=== PATIENT | female | born 1960 | race Caucasian/White ===

== ENCOUNTER 2017-09-09 12:35 | Emergency (ER) | payer MEDICARE, SELFPAY ==
[2017-09-09 15:30] VITALS: BP 190/118; PULSE 96; RESP 24; TEMP 37.2; O2SAT 95
[2017-09-09 15:43] VITALS: BP 176/117; PULSE 118; RESP 20; TEMP 36.8; O2SAT 95
[2017-09-09 15:46] VITALS: BMI 40.2
[2017-09-09 16:04] VITALS: PULSE 116; RESP 20; O2SAT 93; BMI 35.5
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
[2017-09-09 17:47] LABS: Basophils # 0.1 K/mm3 (0-0.2); Basophils % 0.6 % (0.1-2.0); Eosinophils # 0.1 K/mm3 (0.0-0.4); Eosinophils % 0.7 % (0.1-12.0); Hematocrit 48.2 % (37.0-47.0); Hemoglobin 15.9 g/dL (12.2-16.2); Lymphocytes # 3.2 K/mm3 (0.7-4.5); Lymphocytes % 20.8 K/mm3 (10-50); Mean Corpuscular HGB Conc 32.9 g/dL (31.8-35.4); Mean Corpuscular Hemoglobin 28.6 pg (27.0-31.2); Mean Corpuscular Volume 86.9 fl (81-99); Monocytes # 0.7 K/mm3 (0.1-1.0); Monocytes % 4.3 % (1.7-9.3); Neutrophils # 11.4 K/mm3 (1.8-7.8); Neutrophils % 73.6 % (37.0-80.0); Platelet Count 287 K/mm3 (142-424); Red Blood Count 5.54 M/mm3 (4.20-5.40); White Blood Count 15.4 K/mm3 (4.8-10.8)
[2017-09-09 17:50] LABS: MANUAL DIFFERENTIAL MANUAL DIFFERENTIAL (MANUAL DIFF)
[2017-09-09 18:02] LABS: Alanine Aminotransferase 69 U/L (12-78); Albumin Level 3.9 gm/dL (3.4-5.0); Albumin/Globulin Ratio 0.9 (1.1-1.8); Alkaline Phosphatase 116 U/L (46-116); Anion Gap 17.7 mEq/L (5-15); Aspartate Amino Transferase 49 U/L (15-37); Bilirubin,Total 0.4 mg/dL (0.2-1.0); Blood Urea Nitrogen 12 mg/dL (7-18); Calcium 9.8 mg/dL (8.5-10.1); Carbon Dioxide 21 mmol/L (21.0-32.0); Chloride 104 mmol/L (98-107); Creatinine Clearance Estimated 87 mg/ml (0-300); Creatinine,Serum 1.12 mg/dL (0.55-1.02); Estimated Glomerular Filt Rate 50 ml/min (>60); GFR (African American) > 60 ML/MIN (>60); Globulin 4.2 gm/dl (1.3-3.2); Glucose 202 mg/dL (74-106); Potassium 3.7 mmoL/L (3.5-5.1); Sodium 139 mmol/L (136-145); Total Protein,Serum 8.1 gm/dL (6.4-8.2)
[2017-09-09 18:24] LABS: Lymphocytes % 25 % (10-50); Monocytes % 1 % (2-9); Neutrophils % 74 % (42-76); Platelet Estimate Normal; RBC Morphology Normal; Total Cells Counted 100
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
[2017-09-09 20:36] VITALS: BP 170/85; PULSE 105; RESP 16; TEMP 36.6; O2SAT 92
== END 2017-09-09 20:46 | disposition home or self-care (01) ==
PROVIDERS: Emergency Provider Family Medicine
DX: S00.93XA Contusion of unspecified part of head, initial encounter (principal); S10.93XA Contusion of unspecified part of neck, initial encounter; S30.1XXA Contusion of abdominal wall, initial encounter; S40.012A Contusion of left shoulder, initial encounter; Y92.019 Unspecified place in single-family (private) house as the place of occurrence of the external cause; Y04.0XXA Assault by unarmed brawl or fight, initial encounter
CPT/HCPCS: 74178; 70450; 72050; 74176; 74177; 80053; 85007; 85025; 96374; 99284; J2405; Q9967

== ENCOUNTER → 2018-06-10 10:40 | Outpatient (CLI) | payer MEDICARE, SELFPAY ==
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
[2018-06-10 11:15] LABS: Basophils # 0.1 K/mm3 (0-0.2); Basophils % 0.8 % (0.1-2.0); Eosinophils # 0.1 K/mm3 (0.0-0.4); Eosinophils % 1.2 % (0.1-12.0); Hematocrit 47.6 % (37.0-47.0); Hemoglobin 15.4 g/dL (12.2-16.2); Lymphocytes # 4.1 K/mm3 (0.7-4.5); Lymphocytes % 37.8 K/mm3 (10-50); Mean Corpuscular HGB Conc 32.2 g/dL (31.8-35.4); Mean Corpuscular Hemoglobin 28.9 pg (27.0-31.2); Mean Corpuscular Volume 89.7 fl (81-99); Mean Platelet Volume 8.3 fl (7.4-10.4); Monocytes # 0.6 K/mm3 (0.1-1.0); Monocytes % 5.8 % (1.7-9.3); Neutrophils # 5.9 K/mm3 (1.8-7.8); Neutrophils % 54.4 % (37.0-80.0); Platelet Count 264 K/mm3 (142-424); Red Blood Count 5.31 M/mm3 (4.20-5.40); Red Cell Distribution Width 14.5 % (11.5-17.5); White Blood Count 10.8 K/mm3 (4.8-10.8)
[2018-06-10 12:16] LABS: Alanine Aminotransferase 60 U/L (12-78); Albumin Level 3.8 gm/dL (3.4-5.0); Alkaline Phosphatase 103 U/L (46-116); Anion Gap 14.5 mEq/L (5-15); Aspartate Amino Transferase 35 U/L (15-37); Bilirubin,Direct 0.1 mg/dL (0.0-0.2); Bilirubin,Indirect 0.4 mg/dL (0.0-0.9); Bilirubin,Total 0.5 mg/dL (0.2-1.0); Blood Urea Nitrogen 9 mg/dL (7-18); Calcium 9.1 mg/dL (8.5-10.1); Carbon Dioxide 26 mmol/L (21.0-32.0); Chloride 105 mmol/L (98-107); Cholesterol 235 mg/dL (140-200); Creatinine,Serum 0.92 mg/dL (0.55-1.02); Estimated Glomerular Filt Rate 63 ml/min (>60); Free T4 (Free Thyroxine) 0.96 ng/dl (0.76-1.46); GFR (African American) 76 ML/MIN (>60); Glucose 126 mg/dL (74-106); HDL Cholesterol 39 mg/dL (29-89); LDL Cholesterol 136 mg/dL (0-130); Potassium 4.5 mmoL/L (3.5-5.1); Sodium 141 mmol/L (136-145); Total Protein,Serum 7.5 gm/dL (6.4-8.2); Triglycerides 301 mg/dL (30-200); VLDL Cholesterol 60 mg/dL (0-40)
== END ==
PROVIDERS: Family Provider Physician Assistant; PCP Physician Assistant; Visit Provider Internal Medicine
DX: R00.1 Bradycardia, unspecified (principal); R06.00 Dyspnea, unspecified; R07.9 Chest pain, unspecified; R40.0 Somnolence; R53.83 Other fatigue; R94.31 Abnormal electrocardiogram [ECG] [EKG]
CPT/HCPCS: 36415; 71046; 80048; 80061; 80076; 84439; 84443; 85025

== ENCOUNTER → 2018-06-13 07:07 | Outpatient (CLI) | payer MEDICARE, SELFPAY ==
--- NOTE | 2018-06-13 07:11 | CA_ITS ---
PROCEDURE: 2-D M-mode and color Doppler study INDICATIONS FOR THE TEST: Chest pain X COPD Heart Murmur Tobacco SmokingX PalpitationsX Fatigue Syncope EdemaX Hypertension Diabetes Mellitus Rheumatic Fever SOBXDOE ObesityXHyperlipidemia Family History HDX Additional History PATIENT INFORMATION HEIGHT: 60 WEIGHT:248 GENDER: Female B/P:165/96 2-D/M-MODE INTERPRETATION: 2-D MEASUREMENTS OBSERVED VALUES IN CMS Right Ventricular Dimension (RVDd) 3.0 Interventricular Septum (Thickness)(IVsd) .9 Left Ventricular Internal Dimensions(LVIDd) 5.7 Left Ventricular Posterior Wall (Thickness)(LVPWd) 1.0 Aortic Root 3.5 Aortic Cusp Separation 2.1 Left Atrial Dimensions (LAD) 3.9 2D 1. Left atrium is mildly enlarged, left ventricle is normal size, there is mild qualitative concentric left ventricular hypertrophy, visually estimated ejection fraction of 55% with no regional wall motion abnormality. 2. The right atrium and right ventricle are mildly enlarged with normal contractility. 3. The aortic valve is minimally thickened and fibrosed. 4. The mitral and tricuspid valve are structurally normal. 5. The pulmonic valve is poorly visualized. 6. No significant pericardial effusion noted. DOPPLER INTERROGATION: Doppler interrogation of the aortic, mitral and tricuspid valvular presence of mild mitral and tricuspid regurgitation, tricuspid regurgitation jet velocity is inadequate for calculation of the right ventricular systolic pressure, grade 1 diastolic dysfunction seen with tissue Doppler evidence of raised left atrial pressure. CONCLUSION: 1. Mildly enlarged left atrium, normal left ventricular size, visually estimated ejection fraction 55% with no regional wall motion abnormality, grade 1 diastolic dysfunction seen with tissue Doppler evidence of raised left atrial pressure. 2. Mildly enlarged right ventricle with normal contractility. 3. Mild mitral and tricuspid regurgitation 4. No significant pericardial effusion noted.
--- NOTE | 2018-06-13 07:11 | NM_ITS ---
History and Indications: Chest pain, shortness of breath, palpitations, fatigue and family history, abnormal EKG Procedure: Patient received a 0.4 mg of intravenous Lexiscan, resting heart rate was 50 bpm resting blood pressure 180/91, with Lexiscan maximum heart rate achieved was 108 bpm which is less than 85% of the maximum predicted heart rate and a blood pressure was 207/110. With Lexiscan patient complained of nausea and vomiting. Electrocardiogram: Resting electrocardiogram showed sinus bradycardia, with Lexiscan there is less than 1.5 ST segment depression noted from the baseline EKG. The EKG portion of the Lexiscan Myoview is nondiagnostic. Cardiac stress and resting SPECT images: Cardiac stress and resting SPECT images were obtained using technetium 99 Myoview 31.6 mCi at stress and 10.1 mCi at rest. Gated SPECT further analysis of segmental wall motion and calculation of the ejection fraction also done. Cardiac stress and rest show a mild reversible defect in the anterior wall with the perfusion of the apex being normal is likely secondary to soft tissue attenuation from the breast,doubt this is reversible ischemia. Computer derived ejection fraction is 63% with no regional wall motion abnormality, right ventricle is normal size and contractility. Conclusion: 1. The EKG portion of the Lexiscan Myoview is nondiagnostic. 3. Mild reversible defect in the anterior wall is likely secondary to soft tissue attenuation, computer derived ejection fraction is 63% with no regional wall motion abnormality, right ventricle is normal size and contractility. This study is technically limited due to patient's body habitus.
== END ==
PROVIDERS: PCP Physician Assistant; Visit Provider Internal Medicine
DX: R00.1 Bradycardia, unspecified (principal); R06.00 Dyspnea, unspecified; R07.9 Chest pain, unspecified; R40.0 Somnolence; R53.83 Other fatigue; R94.31 Abnormal electrocardiogram [ECG] [EKG]
CPT/HCPCS: 78452; 93017; 93306; A9502; J2785

== ENCOUNTER → 2021-08-17 11:13 | Outpatient (CLI) | payer MEDICARE, SELFPAY ==
[2021-08-17 12:03] LABS: Hemoglobin A1C 7.5 % (4.0-6.0)
[2021-08-17 12:41] LABS: Alanine Aminotransferase 36 U/L (12-78); Albumin Level 4.6 g/dl (3.5-5.0); Albumin/Globulin Ratio 1.5 (1.1-1.8); Alkaline Phosphatase 97 U/L (38-126); Anion Gap 12.6 mEq/L (5-15); Aspartate Amino Transferase 34 U/L (14-36); Bilirubin,Total 0.5 mg/dl (0.2-1.3); Blood Urea Nitrogen 11 mg/dl (7-17); Calcium 10.5 mg/dl (8.4-10.2); Carbon Dioxide 25 mmol/L (22.0-30.0); Chloride 104 mmol/L (98-107); Chol/HDL Ratio 3.3 (1-3.5); Cholesterol 175 mg/dl (140-200); Estimated Glomerular Filt Rate 64 ml/min (>60); GFR (African American) 77 ML/MIN (>60); Glucose 145 mg/dl (74-100); HDL Cholesterol 53 mg/dl (40-60); Potassium 4.6 mmoL/L (3.5-5.1); Sodium 137 mmol/L (136-145); Total Protein,Serum 7.6 g/dl (6.3-8.2); Triglycerides 211 mg/dl (30-150); VLDL Cholesterol 42 mg/dL (0-40)
[2021-08-17 12:52] LABS: Direct LDL Cholesterol 92.26 mg/dL (100-129)
[2021-08-17 12:59] LABS: Free Thyroxine Index 2.9 ug/dL (5.93-13.13); T4 (Thyroxine) 10.2 ug/dl (5.53-11.0); Triiodothryronine (T3) Uptake 28 % (23.5-40.5)
[2021-08-17 13:12] LABS: Thyroid Stimulating Hormone 1.75 uIU/mL (0.465-4.68)
== END ==
PROVIDERS: Visit Provider Internal Medicine Adolescent Medicine
DX: E11.65 Type 2 diabetes mellitus with hyperglycemia (principal); E78.2 Mixed hyperlipidemia
CPT/HCPCS: 36415; 80053; 80061; 83036; 84436; 84443; 84479

== ENCOUNTER → 2021-09-08 15:26 | Outpatient (CLI) | payer MEDICARE, SELFPAY ==
--- NOTE | 2021-09-08 15:29 | MM_ITS ---
PROCEDURE INFORMATION: Exam: MG Bilateral Screening 3D Mammography Exam date and time: 09/08/2021 3:29 PM Age: 60 years old Clinical indication: Encounter for screening mammogram for malignant neoplasm of breast TECHNIQUE: Imaging protocol: Bilateral screening tomosynthesis and 2D mammography including computer-aided detection (CAD) when performed. COMPARISON: No relevant prior studies available. FINDINGS: MAMMOGRAPHY: Breast composition: The breasts are almost entirely fatty. Mass: None. Architectural distortion: None. Calcifications: No suspicious calcifications. Asymmetric density: None. Skin thickening: None. Axillary adenopathy: None. IMPRESSION: No mammographic evidence of malignancy. Annual screening is recommended unless otherwise clinically indicated. ASSESSMENT: BI-RADS Category 1: Negative
== END ==
PROVIDERS: PCP Internal Medicine Adolescent Medicine; Visit Provider Nurse Practitioner Family
DX: Z12.31 Encounter for screening mammogram for malignant neoplasm of breast (principal)
CPT/HCPCS: 77063; 77067

== ENCOUNTER 2021-10-09 16:35 | Emergency (ER) | payer MEDICARE, SELFPAY ==
[2021-10-09 16:37] VITALS: BP 190/105; PULSE 88; RESP 16; TEMP 36.9; O2SAT 96; BMI 31.6
--- NOTE | 2021-10-09 19:45 | HMH.EDGENADL ---
ED Disposition Condition on Discharge: Good - Critical Care Critical Care Time: No <Hayder Moody - Last Filed: 10/09/21 19:45> <Wyatt Lundberg - Last Filed: 10/10/21 01:01> Clinical Impression: Gastroenteritis, Abdominal cramping Disposition: Home, Self-Care Instructions: DI for Enteritis Additional Instructions: call pcp in am and return sample Referrals: Gustabo Kelly MD [Primary Care Provider] - Attestation: On 10/09/21, the high probability of a clinically significant, sudden or life threatening deterioration of the following system(s) required my full and direct attention, intervention and personal management. The time I documented below is in addition to time spent performing reported procedures but includes the following listed in this critical care notation. Medical Decision Making - Medical Records Medical records reviewed: Yes: I reviewed the patient's medical records. - Tab Inquiry Pt receiving controlled substance: No <Hayder Moody - Last Filed: 10/09/21 19:45> - Lab Data Lab results reviewed: Yes: I reviewed the patient's lab results. Result diagrams: 10/09/21 20:22 10/09/21 20:22 - CT Data CT Scan: Abdomen, Pelvis Time Received: 00:[address] Reviewed: Yes: I have viewed the radiologist's interpretation Preliminary Findings: Normal/NAD <Wyatt Lundberg - Last Filed: 10/10/21 01:01> Vital Signs: 10/09/21 16:37 10/09/21 22:07 Temperature 98.4 F Temperature Source Oral Pulse Rate 61 Pulse Rate [Right] 88 Respiratory Rate 16 Blood Pressure 128/56 L Blood Pressure [Right Arm] 190/105 H Blood Pressure Mean 83 Blood Pressure Mean [Right Arm] 133 02 Sat by Pulse Oximetry 96 96 - Lab Data Lab Results 10/09/21 19:45: Urine Color Yellow, Urine Appearance Clear, Urine pH 6.0, Ur Specific Clarence 1.025, Urine Protein Negative, Urine Glucose (UA) Negative, Urine Ketones Negative, Urine Blood Negative, Urine Nitrate Negative, Urine Bilirubin Negative, Urine Urobilinogen 0.2, Ur Leukocyte Esterase Negative, Urine RBC None, Urine WBC Occasional, Ur Squamous Epith Cells Occasional, Urine Bacteria None 10/09/21 20:22: WBC 15.5 H, RBC 5.22, Hgb 15.5, Hct 46.3, MCV 88.7, MCH 29.7, MCHC 33.5, RDW 14.2, Plt Count 326, MPV 8.3, Neut % (Auto) 65.8, Lymph % (Auto) 26.3, [place] % (Auto) 4.8, Eos % (Auto) 1.3, Baso % (Auto) 1.9, Neut # (Auto) 10.2 H, Lymph # (Auto) 4.1, [place] # (Auto) 0.7, Eos # (Auto) 0.2, Baso # (Auto) 0.3 H, Total Counted 100, Neutrophils % (Manual) 65, Band Neutrophils % 1.0, Lymphocytes % (Manual) 25, Monocytes % (Manual) 9, Platelet Estimate Normal 10/09/21 20:22: Sodium 136, Potassium 3.8, Chloride 106, Carbon Dioxide 22, Anion Gap 11.8, BUN 10, Creatinine 0.90, Estimated Creat Clear 83, Estimated GFR 64, Est GFR ( Amer) 77, Glucose 139 H, Calcium 9.0, Total Bilirubin 0.6, AST 27, ALT 24, Alkaline Phosphatase 89, Total Protein 7.4, Albumin 4.2, Globulin 3.2, Albumin/Globulin Ratio 1.3 10/09/21 20:22: ESR 72 H 10/09/21 20:22: C-Reactive Protein 10.7 H, Amylase 42, Lipase 23 Orders (Tests/Meds): ED MEDICATIONS Generic Name Dose Route Start Last Admin Trade Name Freq PRN Reason Stop Dose Admin Sodium Chloride 1,000 mls @ 999 mls/hr 10/09/21 19:45 10/09/21 20:48 Sod Chlor 0.9% 1000ml Bag IV 10/09/21 20:45 999 mls/hr .Q1H1M DEXTER Administration Sodium Chloride 1,000 mls @ 999 mls/hr 10/09/21 22:00 10/09/21 22:00 Sod Chlor 0.9% 1000ml Bag IV 10/09/21 23:00 999 mls/hr .Q1H1M DEXTER Administration Discontinued Medications Generic Name Dose Route Start Last Admin Trade Name Freq PRN Reason Stop Dose Admin Ketorolac Tromethamine 30 mg 10/09/21 20:46 10/09/21 20:48 Ketorolac 30mg/Ml Vial IV 10/09/21 20:47 30 mg ONCE ONE Administration Metoclopramide HCl 5 mg 10/09/21 19:44 10/09/21 20:49 Metoclopramide Hcl 10mg/2ml Vial IVP 10/09/21 19:45 Not Given ONCE ONE Metoclopramide HCl 10 mg 10/09/21 20:49
[2021-10-09 19:52] LABS: Microscopic, Urine URINE MICROSCOPIC (MICROSCOPIC)
[2021-10-09 19:53] LABS: Appearance,Urine CLEAR (Clear); Bilirubin,Urine Negative (Negative); Blood, Urine Negative (Negative); Color,Urine YELLOW (Yellow); Glucose,Urine (UA) Negative (Negative); Ketones,Urine Negative (Negative); Leukocyte Esterase,Urine Negative (Negative); Nitrate,Urine Negative (Negative); Protein,Urine Negative (Negative); Specific Gravity, Urine 1.025 (1.005-1.030); Urobilinogen,Urine 0.2 EU/dl (0.2)
[2021-10-09 20:19] LABS: Squamous Epithelial Cell,Urine Occasional #/hpf (0-5); WBC,Urine Occasional #/hpf (0-3)
[2021-10-09 20:32] LABS: Basophils # 0.3 K/mm3 (0-0.2); Basophils % 1.9 % (0.1-2.0); Eosinophils # 0.2 K/mm3 (0.0-0.4); Eosinophils % 1.3 % (0.1-12.0); Hematocrit 46.3 % (37.0-47.0); Hemoglobin 15.5 g/dL (12.2-16.2); Lymphocytes # 4.1 K/mm3 (0.7-4.5); Lymphocytes % 26.3 % (10-50); Mean Corpuscular HGB Conc 33.5 g/dL (31.8-35.4); Mean Corpuscular Hemoglobin 29.7 pg (27.0-31.2); Mean Corpuscular Volume 88.7 fl (81-99); Mean Platelet Volume 8.3 fl (7.4-10.4); Monocytes # 0.7 K/mm3 (0.1-1.0); Monocytes % 4.8 % (1.7-9.3); Neutrophils # 10.2 K/mm3 (1.8-7.8); Neutrophils % 65.8 % (37.0-80.0); Platelet Count 326 K/mm3 (142-424); Red Blood Count 5.22 M/mm3 (4.20-5.40); Red Cell Distribution Width 14.2 % (11.5-17.5); White Blood Count 15.5 K/mm3 (4.8-10.8)
[2021-10-09 20:33] LABS: MANUAL DIFFERENTIAL MANUAL DIFFERENTIAL (MANUAL DIFF)
[2021-10-09 20:47] LABS: Chloride 106 mmol/L (98-107); Potassium 3.8 mmoL/L (3.5-5.1); Sodium 136 mmol/L (136-145)
[2021-10-09 20:49] LABS: Blood Urea Nitrogen 10 mg/dl (7-17); Creatinine Clearance Estimated 83 mL/min (50-200); Estimated Glomerular Filt Rate 64 ml/min (>60); GFR (African American) 77 ML/MIN (>60)
[2021-10-09 20:50] LABS: Alanine Aminotransferase 24 U/L (12-78); Albumin Level 4.2 g/dl (3.5-5.0); Albumin/Globulin Ratio 1.3 (1.1-1.8); Alkaline Phosphatase 89 U/L (38-126); Anion Gap 11.8 mEq/L (5-15); Aspartate Amino Transferase 27 U/L (14-36); Bilirubin,Total 0.6 mg/dl (0.2-1.3); Carbon Dioxide 22 mmol/L (22.0-30.0); Globulin 3.2 g/dL (1.3-3.2); Glucose 139 mg/dl (74-100); Total Protein,Serum 7.4 g/dl (6.3-8.2)
--- NOTE | 2021-10-09 21:03 | CT_ITS ---
PROCEDURE INFORMATION: Exam: CT Abdomen And Pelvis With Contrast Exam date and time: 10/09/2021 9:03 PM Age: 60 years old Clinical indication: Nausea and vomiting; Prior surgery; Patient HX: HX bowel obstruction; Additional info: N/v/d TECHNIQUE: Imaging protocol: Computed tomography of the abdomen and pelvis with contrast. Radiation optimization: All CT scans at this facility use at least one of these dose optimization techniques: automated exposure control; mA and/or kV adjustment per patient size (includes targeted exams where dose is matched to clinical indication); or iterative reconstruction. Contrast material: ISOVUE; Contrast volume: 75 ml; Contrast route: IV; COMPARISON: ABDPELW CT abdomen pelvis w con 09/09/2017 6:00 PM FINDINGS: Diaphragm: Small hiatal hernia. Liver: Normal. No mass. Gallbladder and bile ducts: No calcified stones. No ductal dilation. Pancreas: Normal enhancement. No ductal dilation. Spleen: No splenomegaly. Adrenal glands: No mass. Kidneys and ureters: No hydronephrosis. Stomach and bowel: Diverticulosis coli without evidence for diverticulitis. Appendix: No evidence of appendicitis. Intraperitoneal space: No free air. No significant fluid collection. Vasculature: Calcified atherosclerosis. No abdominal aortic aneurysm. Lymph nodes: No enlarged lymph nodes. Urinary bladder: No acute abnormality. Reproductive: No acute abnormality. Bones/joints: No acute fracture. Soft tissues: No soft tissue swelling. IMPRESSION: 1. Small hiatal hernia. 2. Diverticulosis coli without evidence for diverticulitis.
[2021-10-09 21:33] LABS: Amylase 42 U/L (30-110); Lipase 23 U/L (23-300)
[2021-10-09 21:39] LABS: C-Reactive Protein 10.7 mg/L (0-4)
[2021-10-09 22:00] LABS: Lymphocytes % 25 % (10-50); Monocytes % 9 % (2-9); Neutrophils % 65 % (42-76); Platelet Estimate Normal; Total Cells Counted 100
[2021-10-09 22:07] VITALS: BP 128/56; PULSE 61; O2SAT 96
[2021-10-09 22:12] LABS: Erythrocyte Sedimentation Rate 72 mm/hr (0-30)
--- NOTE | 2021-10-10 00:10 | PC.NURSE ---
spoke with in lobby and gave update on patient status
[2021-10-10 00:53] VITALS: BP 125/78; PULSE 82; RESP 18; TEMP 36.6; O2SAT 97
== END 2021-10-10 01:06 | disposition home or self-care (01) ==
PROVIDERS: Emergency Medicine; Emergency Provider Emergency Medicine; PCP Internal Medicine Adolescent Medicine
DX: K52.9 Noninfective gastroenteritis and colitis, unspecified (principal)
CPT/HCPCS: 74177; 80053; 81001; 82150; 83690; 85007; 85025; 85651; 86140; 96365; 96366; 96375; 99283; J2405

== ENCOUNTER → 2021-10-10 10:38 | Outpatient (CLI) | payer MEDICARE, SELFPAY | PROVIDERS: PCP Internal Medicine Adolescent Medicine; Visit Provider Emergency Medicine | DX: R19.7 Diarrhea, unspecified (principal) ==

== ENCOUNTER 2021-10-20 13:54 | Emergency (ER) | payer MEDICARE, SELFPAY ==
[2021-10-20 13:43] VITALS: BP 149/86; PULSE 80; RESP 16; TEMP 37.1; O2SAT 96; BMI 30.7
--- NOTE | 2021-10-20 14:23 | CT_ITS ---
FINAL REPORT CLINICAL HISTORY: diffuse abd pain, vomiting h/o SBO, DIARRHEA COMPARISON: October 09, 2021 FINDINGS: CT OF THE ABDOMEN AND PELVIS WITH CONTRAST Axial CT images of the abdomen and pelvis were obtained after the administration of intravenous contrast. Coronal reformatted images were also obtained and reviewed.This study was performed with techniques to keep radiation doses as low as reasonably achievable (ALARA). Individualized dose reduction techniques using automated exposure control or adjustment of mA and/or kV according to the patient's size were employed. Abdomen: There is mild atelectasis or scarring in the lung bases. There is a moderate hiatal hernia. There is an 11 mm lymph node adjacent to the hiatal hernia on the right, stable. The heart is normal in size. The liver has an unremarkable appearance, without evidence of mass or biliary ductal dilatation. The gallbladder is present. The spleen is unremarkable. No adrenal mass is present. The pancreas has an unremarkable appearance. The kidneys are normal, without evidence of mass or hydronephrosis. The aorta is normal in caliber. There is mild vascular calcification. There is descending and sigmoid colon diverticulosis. There is wall thickening of the sigmoid colon without adjacent inflammation favoring muscular hypertrophy. There is fluid in the colon that may represent colitis/enteritis. There is a probable 17 mm lipoma in the distal transverse colon on image 56. Postoperative changes are seen in the lower lumbar spine. Pelvis: The appendix is not well-visualized. The urinary bladder is unremarkable. There is no evidence of mass or adenopathy. There is no evidence of bowel obstruction. There are multiple phleboliths in the pelvis. There has been hysterectomy. IMPRESSION: Wall thickening of the sigmoid colon without adjacent inflammation favors muscular hypertrophy. Diverticulosis without evidence of diverticulitis. Probable lipoma in the distal transverse colon. Fluid in the colon may represent colitis/enteritis. Reviewed, Interpreted and Dictated by Nikhil Avina III, MD Transcribed by Duglas Meyers Authenticated by Nikhil Avina III, MD on 10/20/2021 03:43:13 PM [facility]
[2021-10-20 14:25] LABS: Basophils # 0.2 K/mm3 (0-0.2); Basophils % 1.2 % (0.1-2.0); Eosinophils # 0.3 K/mm3 (0.0-0.4); Eosinophils % 2.2 % (0.1-12.0); Hematocrit 46.5 % (37.0-47.0); Hemoglobin 15.1 g/dL (12.2-16.2); Lymphocytes # 4.7 K/mm3 (0.7-4.5); Lymphocytes % 33.7 % (10-50); Mean Corpuscular HGB Conc 32.5 g/dL (31.8-35.4); Mean Corpuscular Hemoglobin 29.4 pg (27.0-31.2); Mean Corpuscular Volume 90.5 fl (81-99); Mean Platelet Volume 8.5 fl (7.4-10.4); Monocytes # 0.8 K/mm3 (0.1-1.0); Monocytes % 5.8 % (1.7-9.3); Neutrophils # 7.9 K/mm3 (1.8-7.8); Neutrophils % 57.2 % (37.0-80.0); Platelet Count 367 K/mm3 (142-424); Red Blood Count 5.14 M/mm3 (4.20-5.40); Red Cell Distribution Width 14.4 % (11.5-17.5); White Blood Count 13.9 K/mm3 (4.8-10.8)
[2021-10-20 14:26] LABS: Chloride 105 mmol/L (98-107); Potassium 3.7 mmoL/L (3.5-5.1); Sodium 136 mmol/L (136-145)
[2021-10-20 14:29] LABS: Alanine Aminotransferase 28 U/L (12-78); Albumin Level 4.1 g/dl (3.5-5.0); Albumin/Globulin Ratio 1.2 (1.1-1.8); Alkaline Phosphatase 92 U/L (38-126); Amylase 78 U/L (30-110); Anion Gap 9.7 mEq/L (5-15); Aspartate Amino Transferase 33 U/L (14-36); Bilirubin,Total 0.5 mg/dl (0.2-1.3); Blood Urea Nitrogen 10 mg/dl (7-17); Calcium 9.1 mg/dl (8.4-10.2); Carbon Dioxide 25 mmol/L (22.0-30.0); Creatinine Clearance Estimated 83 mL/min (50-200); Estimated Glomerular Filt Rate 73 ml/min (>60); GFR (African American) 88 ML/MIN (>60); Globulin 3.3 g/dL (1.3-3.2); Glucose 80 mg/dl (74-100); Lipase 210 U/L (23-300); Total Protein,Serum 7.4 g/dl (6.3-8.2)
[2021-10-20 14:30] LABS: Lactic Acid 1.6 mmol/L (0.7-2.1)
--- NOTE | 2021-10-20 15:42 | HMH.EDGENADL ---
ED Disposition Clinical Impression: Nausea & vomiting Qualifiers: Vomiting type: unspecified Qualified Code(s): R11.2 - Nausea with vomiting, unspecified Diarrhea Qualifiers: Diarrhea type: unspecified type Qualified Code(s): R19.7 - Diarrhea, unspecified Disposition: Home, Self-Care Condition on Discharge: Good Instructions: DI for Diarrhea and Traveler's Diarrhea -- Adult, DI for Diarrhea and Traveler's Diarrhea -- Child, DI for Nausea -- Adult, DI for Nausea -- Child Referrals: Gustabo Kelly MD [Primary Care Provider] - - Critical Care Critical Care Time: No Attestation: On 10/20/21, the high probability of a clinically significant, sudden or life threatening deterioration of the following system(s) required my full and direct attention, intervention and personal management. The time I documented below is in addition to time spent performing reported procedures but includes the following listed in this critical care notation. Medical Decision Making - Medical Records Medical records reviewed: Yes: I reviewed the patient's medical records. - Tab Inquiry Pt receiving controlled substance: No Vital Signs: 10/20/21 13:43 Temperature 98.7 F Temperature Source Oral Pulse Rate [Left Radial] 80 Respiratory Rate 16 Blood Pressure [Left Arm] 149/86 H Blood Pressure Mean [Left Arm] 107 Blood Pressure Source [Left Arm] Automatic Cuff Blood Pressure Position [Left Arm] Sitting 02 Sat by Pulse Oximetry 96 Oxygen Delivery Method Room Air - Lab Data Lab results reviewed: Yes: I reviewed the patient's lab results. Lab Results 10/20/21 14:02: WBC 13.9 H, RBC 5.14, Hgb 15.1, Hct 46.5, MCV 90.5, MCH 29.4, MCHC 32.5, RDW 14.4, Plt Count 367, MPV 8.5, Neut % (Auto) 57.2, Lymph % (Auto) 33.7, [place] % (Auto) 5.8, Eos % (Auto) 2.2, Baso % (Auto) 1.2, Neut # (Auto) 7.9 H, Lymph # (Auto) 4.7 H, [place] # (Auto) 0.8, Eos # (Auto) 0.3, Baso # (Auto) 0.2 10/20/21 14:02: Sodium 136, Potassium 3.7, Chloride 105, Carbon Dioxide 25, Anion Gap 9.7, BUN 10, Creatinine 0.80, Estimated Creat Clear 83, Estimated GFR 73, Est GFR ( Amer) 88, Glucose 80, Calcium 9.1, Total Bilirubin 0.5, AST 33, ALT 28, Alkaline Phosphatase 92, Total Protein 7.4, Albumin 4.1, Globulin 3.3 H, Albumin/Globulin Ratio 1.2, Amylase 78, Lipase 210 10/20/21 14:02: Lactate 1.6 10/20/21 16:20: Urine Color Straw, Urine Appearance Clear, Urine pH 7.0, Ur Specific [place] <= 1.005, Urine Protein Negative, Urine Glucose (UA) Negative, Urine Ketones Negative, Urine Blood Negative, Urine Nitrate Negative, Urine Bilirubin Negative, Urine Urobilinogen 0.2, Ur Leukocyte Esterase Negative, Urine RBC None, Urine WBC None, Ur Squamous Epith Cells Occasional, Urine Bacteria None Result diagrams: 10/20/21 14:02 10/20/21 14:02 Orders (Tests/Meds): ED MEDICATIONS Generic Name Dose Route Start Last Admin Trade Name Frelen PRN Reason Stop Dose Admin Sodium Chloride 10 ml 10/20/21 13:53 Sodium Chloride 0.9% 10ml Flush Syringe IV 11/19/21 13:52 NEEDED PRN Maintain IV Site Discontinued Medications Generic Name Dose Route Start Last Admin Trade Name Frelen PRN Reason Stop Dose Admin Belladonna Alkaloids 60 ml 10/20/21 17:03 Gi Cocktail 60ml Udc PO 10/20/21 17:04 ONCE ONE Sodium Chloride 1,000 mls @ 999 mls/hr 10/20/21 13:56 10/20/21 14:09 Sod Chlor 0.9% 1000ml Bag IV 10/20/21 14:56 999 mls/hr .Q1H1M ONE Administration Iopamidol 75 ml 10/20/21 14:55 10/20/21 14:56 Iopamidol-370 (76%);100ml Bottle IV 10/20/21 14:56 75 ml ONCE ONE Administration Ketorolac Tromethamine 15 mg 10/20/21 15:57 10/20/21 16:09 Ketorolac 30mg/Ml Vial IV 10/20/21 15:58 15 mg ONCE ONE Administration Ondansetron HCl 4 mg 10/20/21 13:55 10/20/21 14:09 Ondansetron 4mg/2ml Vial IV 10/20/21 13:56 4 mg ONCE ONE Administration Promethazine HCl 25 mg 10/20/21 16:48 Promethazine Hcl 25mg/Ml 1ml Vial IV 10/20/21 16:49 O
[2021-10-20 16:37] LABS: Microscopic, Urine URINE MICROSCOPIC (MICROSCOPIC)
[2021-10-20 16:48] LABS: Appearance,Urine CLEAR (Clear); Bilirubin,Urine Negative (Negative); Blood, Urine Negative (Negative); Color,Urine STRAW (Yellow); Glucose,Urine (UA) Negative (Negative); Ketones,Urine Negative (Negative); Leukocyte Esterase,Urine Negative (Negative); Nitrate,Urine Negative (Negative); Protein,Urine Negative (Negative); Specific Gravity, Urine <= 1.005 (1.005-1.030); Urobilinogen,Urine 0.2 EU/dl (0.2)
[2021-10-20 17:02] LABS: Squamous Epithelial Cell,Urine Occasional #/hpf (0-5)
--- NOTE | 2021-10-20 17:22 | PC.NURSE ---
Dr. Gama speaking with ASAF Schmitz, at .
--- NOTE | 2021-10-20 17:34 | ECG_ITS ---
APPROVED REPORT Exam: Resting ECG HR:63 bpm ECG Measurements Heart Rate 63 AXES RI 156 P 23 QRSd 103 QRS -30 QT 427 T 17 QTc 435 Conclusion SINUS RHYTHM INCOMPLETE RIGHT BUNDLE BRANCH BLOCK [90+ ms QRS DURATION, TERMINAL R IN V1/V2, 40+ ms S IN I/aVL/V4/V5/V6] MODERATE VOLTAGE CRITERIA FOR LVH, CONSIDER NORMAL VARIANT [MEETS CRITERIA IN ONE OF: R(aVL), S(V1), R(V5), R(V5/V6)+S(V1)] POSSIBLE ANTERIOR MYOCARDIAL INFARCTION , PROBABLY OLD [30 ms Q WAVE IN V3/V4, OR R < 0.2 mV IN V4] BORDERLINE ECG UNCONFIRMED REPORT Electronically signed by : Tee Jose MD 10/21/2021 07:35:59
[2021-10-20 17:40] VITALS: BP 129/82; PULSE 63; RESP 18; TEMP 37.1; O2SAT 95
[2021-10-24 13:29] LABS: C difficile Toxins AB, EIA Negative (Negative)
== END 2021-10-20 17:40 | disposition home or self-care (01) ==
PROVIDERS: Emergency Provider Emergency Medicine; PCP Internal Medicine Adolescent Medicine
DX: R42 Dizziness and giddiness (principal); R11.2 Nausea with vomiting, unspecified; R51.9 Headache, unspecified
CPT/HCPCS: 74177; 80053; 81001; 82150; 83605; 83690; 85025; 87177; 87324; 93005; 96365; 96375; 99283; J2405; Q9967

== ENCOUNTER → 2021-10-21 12:00 | Outpatient (CLI) | payer MEDICARE, SELFPAY | PROVIDERS: PCP Internal Medicine Adolescent Medicine; Visit Provider Internal Medicine Adolescent Medicine | DX: R19.7 Diarrhea, unspecified (principal) ==

== ENCOUNTER → 2023-08-29 08:25 | Outpatient (CLI) | payer MEDICARE, SELFPAY ==
[2023-08-29 17:08] LABS: Basophils # 0.1 K/mm3 (0-0.2); Basophils % 0.8 % (0.1-2.0); Eosinophils # 0.1 K/mm3 (0.0-0.4); Eosinophils % 0.6 % (0.1-12.0); Hematocrit 49.5 % (37.0-47.0); Hemoglobin 16.8 g/dL (12.2-16.2); Lymphocytes # 2.4 K/mm3 (0.7-4.5); Lymphocytes % 24.5 % (10-50); Mean Corpuscular HGB Conc 33.9 g/dL (31.8-35.4); Mean Corpuscular Hemoglobin 31.1 pg (27.0-31.2); Mean Corpuscular Volume 91.8 fl (81-99); Monocytes # 0.8 K/mm3 (0.1-1.0); Monocytes % 7.7 % (1.7-9.3); Neutrophils # 6.6 K/mm3 (1.8-7.8); Neutrophils % 66.5 % (37.0-80.0); Platelet Count 227 K/mm3 (142-424); Red Blood Count 5.39 M/mm3 (4.20-5.40); Red Cell Distribution Width 14.6 % (11.5-17.5); White Blood Count 9.9 K/mm3 (4.8-10.8)
[2023-08-29 17:15] LABS: Alanine Aminotransferase 31 U/L (12-78); Alkaline Phosphatase 129 U/L (38-126); Aspartate Amino Transferase 41 U/L (14-36); Bilirubin,Total 0.4 mg/dl (0.2-1.3); Blood Urea Nitrogen 11 mg/dl (7-17); Calcium 9.3 mg/dl (8.4-10.2); Carbon Dioxide 23 mmol/L (22.0-30.0); Chloride 106 mmol/L (98-107); Chol/HDL Ratio 6.2 (1-3.5); Cholesterol 242 mg/dl (140-200); Estimated Glomerular Filt Rate 63 ml/min (>60); GFR (African American) 77 ML/MIN (>60); Glucose 150 mg/dl (74-100); HDL Cholesterol 39 mg/dl (40-60); Triglycerides 155 mg/dl (30-150); VLDL Cholesterol 31 mg/dL (0-40)
[2023-08-29 17:16] LABS: Albumin Level 4.4 g/dl (3.5-5.0); Albumin/Globulin Ratio 1.4 (1.1-1.8); Anion Gap 12.2 mEq/L (5-15); Globulin 3.2 g/dL (1.3-3.2); Potassium 4.2 mmoL/L (3.5-5.1); Sodium 137 mmol/L (136-145); Total Protein,Serum 7.6 g/dl (6.3-8.2)
[2023-08-29 17:26] LABS: Direct LDL Cholesterol 156.08 mg/dL (100-129)
[2023-08-29 17:44] LABS: Thyroid Stimulating Hormone 1.41 uIU/mL (0.465-4.68)
[2023-08-29 17:54] LABS: Hemoglobin A1C 7.3 % (4.0-6.0)
== END ==
PROVIDERS: PCP Family Medicine; Visit Provider Family Medicine
DX: Z00.00 Encounter for general adult medical examination without abnormal findings (principal); I10 Essential (primary) hypertension; E11.9 Type 2 diabetes mellitus without complications; R53.83 Other fatigue; Z79.84 Long term (current) use of oral hypoglycemic drugs; Z87.891 Personal history of nicotine dependence
CPT/HCPCS: 80053; 80061; 83036; 84443; 85025

== ENCOUNTER 2024-05-27 15:50 | Outpatient (CLI) | payer MEDICARE, SELFPAY ==
--- NOTE | 2024-05-27 15:50 | MM_ITS ---
PROCEDURE INFORMATION: Exam: MG Bilateral Screening 3D Mammography Exam date and time: 05/27/2024 3:43 PM Age: 63 years old Clinical indication: Screening exam. TECHNIQUE: Imaging protocol: Bilateral Screening tomosynthesis and 2D mammography including computer-aided detection (CAD) when performed. COMPARISON: MG MM DIG SCREENING MAMM BI W/CAD 09/08/2021 3:52 PM FINDINGS: MAMMOGRAPHY: Breast composition: There are scattered areas of fibroglandular density. Mass: No suspicious masses. Architectural distortion: None. Calcifications: No suspicious calcifications. Asymmetric density: None. Skin thickening: None. Axillary adenopathy: None. IMPRESSION: No mammographic evidence of malignancy. Annual screening is recommended unless otherwise clinically indicated. ASSESSMENT: BI-RADS Category 1: Negative.
== END 2024-05-27 23:59 | disposition home or self-care (01) ==
LOC: RAD 15:50
PROVIDERS: PCP Family Medicine; Visit Provider Family Medicine
DX: Z12.31 Encounter for screening mammogram for malignant neoplasm of breast (principal)
CPT/HCPCS: 77063; 77067

== ENCOUNTER 2024-09-04 12:50 | Outpatient (CLI) | payer MEDICARE, SELFPAY ==
[2024-09-04 16:19] LABS: Basophils # 0.1 K/mm3 (0-0.2); Basophils % 0.8 % (0.1-2.0); Eosinophils # 0.2 K/mm3 (0.0-0.4); Hematocrit 47.6 % (37.0-47.0); Hemoglobin 15.5 g/dL (12.2-16.2); Lymphocytes # 3.3 K/mm3 (0.7-4.5); Lymphocytes % 38.4 % (10-50); Mean Corpuscular HGB Conc 32.6 g/dL (31.8-35.4); Mean Corpuscular Hemoglobin 29.5 pg (27.0-31.2); Mean Corpuscular Volume 90.5 fl (81-99); Mean Platelet Volume 11.1 fl (7.4-10.4); Monocytes # 0.7 K/mm3 (0.1-1.0); Monocytes % 8.3 % (1.7-9.3); Neutrophils # 4.3 K/mm3 (1.8-7.8); Platelet Count 275 K/mm3 (142-424); Red Blood Count 5.26 M/mm3 (4.20-5.40); Red Cell Distribution Width 14.3 % (11.5-17.5); White Blood Count 8.6 K/mm3 (4.8-10.8)
[2024-09-04 16:33] LABS: Alanine Aminotransferase 32 U/L (12-78); Albumin Level 4.1 g/dl (3.5-5.0); Albumin/Globulin Ratio 1.6 (1.1-1.8); Alkaline Phosphatase 140 U/L (38-126); Anion Gap 11.6 mEq/L (5-15); Aspartate Amino Transferase 32 U/L (14-36); Bilirubin,Total 0.5 mg/dl (0.2-1.3); Blood Urea Nitrogen 9 mg/dl (7-17); Calcium 9.6 mg/dl (8.4-10.2); Carbon Dioxide 26 mmol/L (22.0-30.0); Chloride 103 mmol/L (98-107); Cholesterol 251 mg/dl (140-200); Estimated Glomerular Filt Rate 72 ml/min (>60); GFR (African American) 87 ML/MIN (>60); Globulin 2.5 g/dL (1.3-3.2); Glucose 255 mg/dl (74-100); HDL Cholesterol 36 mg/dl (40-60); Potassium 4.6 mmoL/L (3.5-5.1); Sodium 136 mmol/L (136-145); Total Protein,Serum 6.6 g/dl (6.3-8.2)
[2024-09-04 16:45] LABS: Direct LDL Cholesterol 123.93 mg/dL (100-129)
[2024-09-04 17:08] LABS: Triglycerides 412 mg/dl (30-150)
[2024-09-04 17:09] LABS: Thyroid Stimulating Hormone 1.27 uIU/mL (0.465-4.68)
[2024-09-04 18:07] LABS: Microalbumin/Creatinine Ratio 216.6
[2024-09-04 18:13] LABS: Creatinine,Urine Random 84 mg/dL (Not Estab.)
[2024-09-04 20:03] LABS: HIV Combo NEGATIVE (Negative)
[2024-09-04 20:38] LABS: Hemoglobin A1C 9.4 % (4.0-6.0)
[2024-09-05 08:10] LABS: HCV Ab Non Reactive (Non Reactive)
== END 2024-09-04 23:59 | disposition home or self-care (01) ==
LOC: LAB.DROPOF 09-07 12:50
PROVIDERS: PCP Nurse Practitioner Family; Visit Provider Nurse Practitioner Family
DX: Z11.59 Encounter for screening for other viral diseases (principal); I10 Essential (primary) hypertension; Z87.891 Personal history of nicotine dependence; E11.9 Type 2 diabetes mellitus without complications; Z79.84 Long term (current) use of oral hypoglycemic drugs; Z79.85 Long-term (current) use of injectable non-insulin antidiabetic drugs; E78.5 Hyperlipidemia, unspecified
CPT/HCPCS: 80053; 80061; 82043; 82570; 83036; 84443; 85025; 86803; 87389

== ENCOUNTER 2024-10-09 14:02 | Outpatient (CLI) | payer MEDICARE, SELFPAY ==
--- NOTE | 2024-10-09 14:03 | CT_ITS ---
FINAL REPORT TECHNIQUE: Thin section axial images were obtained from the lung apices to the upper abdomen by computed tomography. Reformatted images were obtained and reviewed. This study was performed with techniques to keep radiation doses al low as reasonably achievable (ALARA). Individualized dose reduction techniques using automated exposure control or adjustment of mA and/or kV according to the patient's size were employed. CLINICAL HISTORY: lung cancer screening current CBD cigarette smoker 1 per day for 5 years former tobacco smoker 3 ppd x 18 yrs 112.29 DLP COMPARISON: None FINDINGS: CHEST CT LOW DOSE 63-year-old female, current smoker, 71-ewof-fofj history CTDI vol (mGy): 2.9 DLP (mGy-cm): 112.29 There is no axillary adenopathy. There is no mediastinal or hilar mass or adenopathy. The heart is normal in size. Dense coronary artery calcifications are present. There is no pericardial or pleural effusion. Lung window images demonstrate a posterior pleural-based nodule in the right upper lobe, measuring 3 mm in size and best seen on image 17 of series 4. There is a 3 mm mid right upper lobe nodule present, seen on image #22 of series 4, and image 16 of series 604. Limited images of the upper abdomen demonstrate a hiatal hernia, small to moderate in size. IMPRESSION: Lung-RADS category 2S, the S designation for dense coronary artery calcifications. Recommend 12 month follow up low dose chest CT. Reviewed, Interpreted and Dictated by Dheeraj Marina MD Transcribed by Moriah Moore Authenticated and [facility]
== END 2024-10-09 23:59 | disposition home or self-care (01) ==
LOC: RAD 14:03
PROVIDERS: PCP Family Medicine; Visit Provider Nurse Practitioner Family
DX: F17.210 Nicotine dependence, cigarettes, uncomplicated (principal)
CPT/HCPCS: 71271

== ENCOUNTER 2025-06-17 10:29 | Outpatient (CLI) | payer MEDICARE, SELFPAY ==
--- NOTE | 2025-06-17 10:30 | MM_ITS ---
PROCEDURE INFORMATION: Exam: MG Bilateral Screening 3D Mammography Exam date and time: 06/17/2025 10:39 AM Age: 64 years old Clinical indication: Screening examination. TECHNIQUE: Imaging protocol: Bilateral Screening tomosynthesis and 2D mammography including computer-aided detection (CAD) when performed. COMPARISON: MG MM DIG SCREENING MAMM BI W/CAD 05/27/2024 3:43 PM FINDINGS: MAMMOGRAPHY: Breast composition: The breasts are almost entirely fatty. Mass: None. Architectural distortion: None. Calcifications: No suspicious calcifications. Asymmetric density: None. Skin thickening: None. Axillary adenopathy: None. IMPRESSION: No mammographic evidence of malignancy. Annual screening is recommended unless otherwise clinically indicated. ASSESSMENT: BI-RADS Category 1: Negative.
== END 2025-06-17 23:59 | disposition home or self-care (01) ==
LOC: RAD 10:30
PROVIDERS: PCP Family Medicine; Visit Provider Nurse Practitioner Family
DX: Z12.31 Encounter for screening mammogram for malignant neoplasm of breast (principal)
CPT/HCPCS: 77063; 77067

== ENCOUNTER 2025-07-22 09:20 | Outpatient (CLI) | payer MEDICARE, SELFPAY ==
[2025-07-22 17:55] LABS: Hematocrit 45.7 % (37.0-47.0); Hemoglobin 14.5 g/dL (12.2-16.2); Immature Granulocytes % 0.4 %; Mean Corpuscular HGB Conc 31.7 g/dL (31.8-35.4); Mean Corpuscular Hemoglobin 29.6 pg (27.0-31.2); Mean Corpuscular Volume 93.3 fl (81-99); Nucleated Red Blood Cells % 0 %; Platelet Count 257 K/mm3 (142-424); Red Blood Count 4.90 M/mm3 (4.20-5.40); Red Cell Distribution Width-SD 49.6 fL; White Blood Count 12.1 K/mm3 (4.8-10.8)
[2025-07-22 18:24] LABS: Hemoglobin A1C 7.8 % (4.0-6.0)
[2025-07-22 18:42] LABS: 25-OH Vitamin D, Total 41.9 ng/mL (30-100)
[2025-07-22 20:37] LABS: Anion Gap 12.9 mEq/L (5-15); Blood Urea Nitrogen 17 mg/dl (7-17); Calcium 9.7 mg/dl (8.4-10.2); Carbon Dioxide 22 mmol/L (22.0-30.0); Chloride 102 mmol/L (98-107); Creatinine,Serum 0.90 mg/dl (0.52-1.04); Estimated Glomerular Filt Rate 63 ml/min (>60); GFR (African American) 76 ML/MIN (>60); Glucose 239 mg/dl (74-100); Potassium 4.9 mmoL/L (3.5-5.1); Sodium 132 mmol/L (136-145)
[2025-07-22 20:38] LABS: Alanine Aminotransferase 20 U/L (12-78); Albumin Level 4.3 g/dl (3.5-5.0); Albumin/Globulin Ratio 1.4 (1.1-1.8); Alkaline Phosphatase 111 U/L (38-126); Aspartate Amino Transferase 25 U/L (14-36); Bilirubin,Total 0.5 mg/dl (0.2-1.3); Cholesterol 261 mg/dl (140-200); Globulin 3.0 g/dL (1.3-3.2); HDL Cholesterol 44 mg/dl (40-60); Total Protein,Serum 7.3 g/dl (6.3-8.2); Triglycerides 208 mg/dl (30-150)
[2025-07-22 20:44] LABS: Thyroid Stimulating Hormone 0.69 uIU/mL (0.465-4.68)
[2025-07-22 21:03] LABS: Vitamin B12 288 pg/mL (239-931)
== END 2025-07-22 23:59 ==
LOC: LAB.DROPOF 07-26 09:02
PROVIDERS: PCP Family Medicine; Visit Provider Nurse Practitioner Family
DX: F41.9 Anxiety disorder, unspecified (principal); I10 Essential (primary) hypertension; E11.9 Type 2 diabetes mellitus without complications; F32.A Depression, unspecified; R82.90 Unspecified abnormal findings in urine; Z68.34 Body mass index [BMI] 34.0-34.9, adult
CPT/HCPCS: 80053; 80061; 82043; 82306; 82570; 82607; 83036; 84443; 85025; 87086